=== PATIENT | female | born 1970 | race Caucasian/White ===

== ENCOUNTER 2019-06-12 07:27 | Emergency (ER) | payer SELFPAY ==
[2019-06-12] MEDS ORDERED: HYDROmorphone 1 MG/ML Syringe IVPUSH ONE (07:39)
[2019-06-12] MEDS ORDERED: Sodium Chloride 0.9% 10 ML Syringe FLUSH PRN ×2 (07:39→09:47)
[2019-06-12] MEDS ORDERED: LORazepam 2 MG/ML SDV IVPUSH ONE ×2 (08:05→08:32)
--- NOTE | 2019-06-12 08:21 | CR ---
[id number] RAD/RAD Shoulder Right 1V EXAM: RAD Shoulder Right 1V CLINICAL DATA: TRAUMA COMPARISON: NO PREVIOUS SIMILAR EXAM IS AVAILABLE. FINDINGS: Anterior inferior dislocation is seen There may be a Bankart lesion. IMPRESSION: DISLOCATED SHOULDER Devon Bianchi MD 06/12/19 0923 Thank you for allowing us to participate in the care of your patient.
[2019-06-12] MEDS ORDERED: Propofol 200 MG/20 ML SDV ONE (09:08)
--- NOTE | 2019-06-12 10:03 | CR ---
[id number] RAD/RAD Shoulder Right 1V EXAM: SINGLE VIEW RIGHT SHOULDER. INDICATION: POST REDUCTION. COMPARISON: None. DISCUSSION: Single view postreduction demonstrates anatomic alignment of the right glenohumeral joint. No fractures identified. IMPRESSION: 1. Anatomic alignment of the right glenohumeral joint status post reduction. Carlton Rendon DO 06/12/19 1002 Thank you for allowing us to participate in the care of your patient.
--- NOTE | 2019-06-13 06:04 | EDM.PDOC ---
ED HPI GENERAL MEDICAL PROBLEM - General Chief Complaint: Upper Extremity Injury/Pain Stated Complaint: FELL Time Seen by Provider: 06/12/19 07:40 Source of Information: Reports: Patient History Limitations: Reports: No Limitations - History of Present Illness INITIAL COMMENTS - FREE TEXT/NARRATIVE: Pt. states that she fell at home in the night injuring her R shoulder. Pt. had been drinking and also took some ambien prior to the fall. Denies stiking her head. No neck pain. Pt. noticed significant deformity/discomfort when she woke up and subseqently presented to ER. States pain is isolated to R shoulder. No numbness/tingling in the distal portion of the extremity. No history of previous shoulder dislocation. Onset Date: 06/12/19 Location: Reports: Upper Extremity, Right Quality: Reports: Ache, Throbbing Severity: Severe Improves with: Reports: Rest Worsens with: Reports: Movement Right Upper Arm Pain Score (Numeric/FACES): 10 - Related Data Allergies Allergy/AdvReac Type Severity Reaction Status Date / Time No Known Allergies Allergy Verified 06/12/19 07:36 Home Meds: Home Meds QUEtiapine Fumarate [Seroquel] 200 mg DAILY 06/12/19 [History] Zolpidem [Ambien] 10 mg DAILY 06/12/19 [History] buPROPion HCl [Wellbutrin Xl] 150 mg DAILY 06/12/19 [History] Past Medical History Genitourinary History: Reports: Renal Calculus Psychiatric History: Reports: Depression - Past Surgical History Female Surgical History: Reports: Lithotripsy/ESWL Musculoskeletal Surgical History: Reports: Arthroscopic Knee Social & Family History - Tobacco Use Smoking Status *Q: Current Every Day Smoker Years of Tobacco use: 30 Packs/Tins Daily: 0.5 - Alcohol Use Days Per Week of Alcohol Use: 3 Number of Drinks Per Day: 3 Total Drinks Per Week: 9 - Recreational Drug Use Recreational Drug Use: No ED ROS GENERAL - Review of Systems Review Of Systems: See Below Constitutional: Reports: No Symptoms HEENT: Reports: No Symptoms Respiratory: Reports: No Symptoms Cardiovascular: Reports: No Symptoms Endocrine: Reports: No Symptoms GI/Abdominal: Reports: No Symptoms Musculoskeletal: Reports: Shoulder Pain Skin: Reports: No Symptoms Neurological: Reports: No Symptoms Psychiatric: Reports: No Symptoms Hematologic/Lymphatic: Reports: No Symptoms Immunologic: Reports: No Symptoms ED EXAM, GENERAL - Physical Exam Exam: See Below Exam Limited By: No Limitations General Appearance: Alert, WD/WN, No Apparent Distress Eye Exam: Bilateral Eye: EOMI, Normal Fundi, Normal Inspection, PERRL Throat/Mouth: Normal Inspection, Normal Lips, Normal Teeth, Normal Gums, Normal Oropharynx, Normal Voice, No Airway Compromise Head: Atraumatic, Normocephalic Neck: Normal Inspection, Supple, Non-Tender, Full Range of Motion Respiratory/Chest: No Respiratory Distress, Lungs Clear, Normal Breath Sounds, No Accessory Muscle Use, Chest Non-Tender Cardiovascular: Normal Peripheral Pulses, Regular Rate, Rhythm, No Edema, No Gallop, No JVD, No Murmur, No Rub Peripheral Pulses: 4+: Radial (L) GI/Abdominal: Normal Bowel Sounds, Soft, Non-Tender, No Organomegaly, No Distention, No Abnormal Bruit, No Mass (Female) Exam: Deferred Rectal (Female) Exam: Deferred Back Exam: Normal Inspection, Full Range of Motion Extremities: Other (R shoulder appears to be anteriorly dislocated. Decreased ROM to joint. Hollowing inferior to the glenoid.) Neurological: Alert, Oriented, CN II-XII Intact, Normal Cognition, Normal Gait, Normal Reflexes, No Motor/Sensory Deficits Psychiatric: Normal Affect, Normal Mood Lymphatic: No Adenopathy ED GENERAL MEDICAL PROCEDURES - Joint Reduction Site: Shoulder (R) Sedation: Conscious Sedation Pre-procedure NV status: Normal Post-procedure NV status: Normal Number of Attempts: 2 Post-Reduction Imaging: Completely Reduced Progress/Comments: Initially pt. was given dilaudid 1 mg IV and ativan a total of 2 mg IV. Nick method of reduction with a total of 30# of weight was utilized without reduction. Subsequently anesthesia was consulted. Please refer to his documentation. External rotation method was used to reduce shoulder on second attempt. Pt. was placed on a shoulder immobilizer. She reported significant improvement in discomfort. Course - Vital Signs Last Recorded V/S: Last Vital Signs Temp 36.1 C 06/12/19 07:27 Pulse 113 H 06/12/19 10:45 Resp 16 06/12/19 10:45 BP 151/94 H 06/12/19 10:45 Pulse Ox 97 06/12/19 10:45 - Orders/Labs/Meds Orders: Active Orders 24 hr Category Date Time Status EKG Documentation Completion [RC] STAT Care 06/12/19 09:47 Inactive Peripheral IV Insertion Adult [OM.PC] Routine Oth 06/12/19 07:39 Ordered Peripheral IV Insertion Adult [OM.PC] Routine Oth 06/12/19 09:47 Ordered Meds: Medications Discontinued Medications Generic Name Dose Route Start Last Admin Trade Name Elisabeth PRN Reason Stop Dose Admin Hydromorphone HCl 1 mg 06/12/19 07:39 06/12/19 07:47 Dilaudid IVPUSH 06/12/19 07:40 1 mg ONETIME ONE Administration Lorazepam 1 mg 06/12/19 08:05 06/12/19 08:17 Ativan IVPUSH 06/12/19 08:06 1 mg STAT ONE Administration Lorazepam 1 mg 06/12/19 08:32 06/12/19 08:33 Ativan IVPUSH 06/12/19 08:33 1 mg STAT ONE Administration Propofol Confirm 06/12/19 09:08 Diprivan 20 Ml Administered 06/12/19 09:09 Dose 400 mg .ROUTE .STK-MED ONE Sodium Chloride 10 ml 06/12/19 07:39 Saline Flush FLUSH ASDIRECTED PRN Keep Vein Open Sodium Chloride 10 ml 06/12/19 09:47 Saline Flush FLUSH ASDIRECTED PRN Keep Vein Open Departure - Departure Time of Disposition: 06:09 Disposition: Home, Self-Care 01 Clinical Impression: Anterior shoulder dislocation - Discharge Information Instructions: Acetaminophen; Hydrocodone tablets or capsules, Hypertension, [id number], Shoulder Dislocation, [id number] Referrals: Gerri Horn [employer] [Primary Care Provider] - Forms: ED Department Discharge Additional Instructions: [place] 5/325mg 1 every 4-6 hours as needed for pain [facility] will contact you regarding an appointment for orthopedics as well as for a recheck of your blood pressure. It is possible that your blood pressure is elevated today due to the consumption of alcohol last night and being in pain/undergoing shoulder reduction today. Subsequently, I will defer starting you on any blood pressure medication until it is rechecked in the clinic when you are in less pain. Wear shoulder immobilizer for at least a week, or as directed by your orthopedic doctor/PCP. - Problem List Review Problem List Initiated/Reviewed/Updated: Yes - My Orders Last 24 Hours: My Active Orders 06/12/19 07:39 Peripheral IV Insertion Adult [OM.PC] Routine 06/12/19 09:47 EKG Documentation Completion [RC] STAT Peripheral IV Insertion Adult [OM.PC] Routine - Assessment/Plan Last 24 Hours: My Active Orders 06/12/19 07:39 Peripheral IV Insertion Adult [OM.PC] Routine 06/12/19 09:47 EKG Documentation Completion [RC] STAT Peripheral IV Insertion Adult [OM.PC] Routine Plan: [place] 5/325mg 1 every 4-6 hours as needed for pain [facility] will contact you regarding an appointment for orthopedics as well as for a recheck of your blood pressure. It is possible that your blood pressure is elevated today due to the consumption of alcohol last night and being in pain/undergoing shoulder reduction today. Subsequently, I will defer starting you on any blood pressure medication until it is rechecked in the clinic when you are in less pain. Wear shoulder immobilizer for at least a week, or as directed by your orthopedic doctor/PCP.
== END 2019-06-12 10:50 | disposition home or self-care (01) ==
LOC: VM.ED 07:27
DX: S43.014A Anterior dislocation of right humerus, initial encounter (principal); F17.210 Nicotine dependence, cigarettes, uncomplicated; Z79.899 Other long term (current) drug therapy; W19.XXXA Unspecified fall, initial encounter
CPT/HCPCS: 01620; 23650; 73020-RT; 99140; 99152; 99153; 99284-25; J1170; J2060